=== PATIENT | male | born 1950 | race Caucasian/White ===

== ENCOUNTER 2021-04-05 13:08 | Inpatient (IN) | payer MEDICARE, BC ==
[~2021-04-05] VITALS: Ht 175.3 cm; Wt 84.8 kg
[2021-04-05] MEDS ORDERED: OLANZAPINE 10 MG VIAL IM ONE ×2 (13:45→13:52)
[2021-04-05] MEDS ORDERED: LORAZEPAM 0.5 MG TABLET PO ONE (13:45)
[2021-04-05] MEDS ORDERED: LORAZEPAM 1 MG TABLET ONE (13:47)
--- NOTE | 2021-04-05 13:50 | NUR ---
pt agitated and non-compliant at this time. pt medicated, will wait to see the results, pt on monitor.
[2021-04-05] MEDS ORDERED: QUET25TA PO ×2 (13:54)
[2021-04-05] MEDS ORDERED: QUET100T PO (13:54)
[2021-04-05] MEDS ORDERED: MIRT-93 PO (13:54)
[2021-04-05] MEDS ORDERED: LORA-258 PO (13:54)
[2021-04-05] MEDS ORDERED: APIX5TAB PO (14:13)
[2021-04-05] MEDS ORDERED: CARV3.122 PO (14:13)
[2021-04-05 14:46] LABS: HEMATOCRIT 41.1 % (36.7-47.1); MEAN CORPUSCULAR HEMOGLOBIN 30.9 uug (23.8-33.4); MEAN CORPUSCULAR VOLUME 92.1 fL (73.0-96.2); PLATELET COUNT (AUTO) 246 K/uL (152-348)
[2021-04-05 14:48] LABS: CARBON DIOXIDE 26 mmol/L (21-32); CHLORIDE 105 mmol/L (98-107); CREATININE 0.9 mg/dL (0.6-1.3); GLUCOSE 111 mg/dL (74-106); POTASSIUM 3.7 mmol/L (3.5-5.1); UREA NITROGEN, BLOOD 15 mg/dL (7-18)
[2021-04-05 14:55] LABS: ETHANOL < 3 MG/DL (0-0)
[2021-04-05 14:57] LABS: ALANINE AMINOTRANSFERASE 23 U/L (16-63); ALKALINE PHOSPHATASE 97 U/L (50-136); ASPARTATE AMINOTRANSFERASE 27 U/L (15-37); BILIRUBIN,DIRECT 0.2 mg/dL (0.0-0.2); BILIRUBIN,TOTAL 0.8 mg/dL (0.2-1.0); TOTAL PROTEIN, SERUM 7.3 g/dL (6.4-8.2)
[2021-04-05 15:01] LABS: THYROID STIMULATING HORMONE 0.871 mIU/mL (0.358-3.740)
[2021-04-05 15:13] LABS: ACETAMINOPHEN < 2.0 ug/mL (10-30)
[2021-04-05] MEDS ORDERED: diphenhydrAMINE 50 MG/1 ML VIAL ONE (15:13)
[2021-04-05] MEDS ORDERED: diphenhydrAMINE 50 MG/1 ML VIAL IM ONE (15:15)
--- NOTE | 2021-04-05 17:00 | NUR ---
pt calm, resting, at bedside.
--- NOTE | 2021-04-05 17:16 | NUR ---
parag gonzalez at bedside. pt's at bedside.
[2021-04-05] MEDS ORDERED: MAGNESIUM HYDROXIDE 30 ML LIQUID UDC PO PRN (18:15)
[2021-04-05] MEDS ORDERED: TEMAZEPAM 7.5 MG CAPSULE PO PRN (18:15)
[2021-04-05] MEDS ORDERED: MAG HYDROX/AL HYDROX/SIMETH 30 ML LIQUID UDC PO PRN (18:15)
[2021-04-05 19:59] VITALS: BP 154/78
[2021-04-05] MEDS ORDERED: hydrALAZINE HCL 25 MG TABLET PO PRN (20:45)
[2021-04-05] MEDS: DOCUSATE SODIUM 100 MG CAPSULE PO SCH ×2 (21:59→23:07)
[2021-04-05] MEDS: CARVEDILOL 3.125 MG TABLET PO SCH ×2 (21:59→23:07)
--- NOTE | 2021-04-05 22:00 | NUR ---
received to care, lying in bed, restless, resistive with care, combative, at times. apple sauce, and fluids given, with some resistance. 3 staff required to reder care, due to aggressiveness. as of now, he remains restless, talking to self. monitored closely for safety. will continue to monitor closely.
[2021-04-05] MEDS: LORAZEPAM 1 MG TABLET PO PRN (23:32)
--- NOTE | 2021-04-05 23:32 | NUR ---
PRN ativan given for restlessness.
--- NOTE | 2021-04-06 00:30 | NUR ---
appears to be asleep. no distress noted.
[2021-04-06 07:07] LABS: BILIRUBIN,TOTAL 1.1 mg/dL (0.2-1.0); CREATININE 0.7 mg/dL (0.6-1.3); POTASSIUM 3.6 mmol/L (3.5-5.1); TOTAL PROTEIN, SERUM 7.2 g/dL (6.4-8.2)
[2021-04-06 07:30] VITALS: BP 133/76
[2021-04-06] MEDS: LORAZEPAM 1 MG TABLET PO PRN (08:43)
[2021-04-06] MEDS: APIXABAN 5 MG TABLET PO SCH ×3 (08:44→23:55)
[2021-04-06] MEDS: CARVEDILOL 3.125 MG TABLET PO SCH ×2 (08:44→17:07)
[2021-04-06 15:06] VITALS: BP 130/71
[2021-04-06 21:25] VITALS: BP 114/87
[2021-04-06] MEDS: RIVASTIGMINE TARTRATE 1.5 MG CAPSULE PO SCH ×2 (21:58→23:52)
[2021-04-06] MEDS: risperiDONE 0.5 MG TABLET PO SCH ×2 (21:58→23:53)
[2021-04-06] MEDS: DOCUSATE SODIUM 100 MG CAPSULE PO SCH ×2 (21:58→23:54)
[2021-04-06] MEDS: DIVALPROEX 250 MG TABLET.DR PO SCH ×2 (21:58→23:53)
[2021-04-06] MEDS: MIRTAZAPINE 15 MG TABLET PO SCH ×2 (21:58→23:52)
--- NOTE | 2021-04-07 03:19 | NUR ---
received to care, asleep, in bed, no distress noted. maximum precautions observed for safety. 2100 medications were held. he was awoken at around 2355, and medications were given, with difficulty and much encouragement,along with a container of applesauce, and around 100 ml of water. he then became restless, and tried to climb out of bed. he was assisted up in the padmini chair, placed at nurses station for safety, and fell asleep again, around 0100. as of now, he remains asleep. no distress noted. will continue to monitor closely.
--- NOTE | 2021-04-07 06:00 | NUR ---
slept 6 hours. remains up in padmini chair at nurses station, for safety.
[2021-04-07 07:46] VITALS: BP 129/75
--- NOTE | 2021-04-07 08:17 | NUR ---
SW Family Contact SW talked to son, Harman Albert to discuss treatment and discharge plan. Son refused to speak with SW and was upset, refuse to provide information, and hung the phone up.
[2021-04-07] MEDS: RIVASTIGMINE TARTRATE 1.5 MG CAPSULE PO SCH ×2 (09:28→23:10)
[2021-04-07] MEDS: CARVEDILOL 3.125 MG TABLET PO SCH ×2 (09:28→17:29)
[2021-04-07] MEDS: APIXABAN 5 MG TABLET PO SCH ×2 (09:29→23:15)
[2021-04-07] MEDS: risperiDONE 0.5 MG TABLET PO SCH ×2 (09:30→23:11)
[2021-04-07] MEDS: DIVALPROEX 250 MG TABLET.DR PO SCH ×2 (09:30→23:11)
--- NOTE | 2021-04-07 15:48 | NUR ---
SW Family Contact SW left a voicemail for patient's Brian ([phone]) to discuss treatment and discharge plan. Waiting for a call back.
[2021-04-07 16:09] VITALS: BP 132/69
--- NOTE | 2021-04-07 17:45 | NUR ---
GPS: PT SITTING ON THE GERICHAIR, CONFUSED, TALKS TO SELF IN ENGLISH LANGUAGE. CHALLENGING TO GIVE MEDICATION. PT REFUSED EATING LUNCH AND DINNER. NOT OPENING MOUTH EVEN EXPLAINING IN HIS [place] AND [place] TONGUE TO EAT. PT WAS ABLE TO CONSUME A SUPPLEMENT DRINK TODAY.
[2021-04-07 20:04] VITALS: BP 123/83
[2021-04-07] MEDS: MIRTAZAPINE 15 MG TABLET PO SCH (23:10)
[2021-04-07] MEDS: DOCUSATE SODIUM 100 MG CAPSULE PO SCH (23:10)
--- NOTE | 2021-04-08 00:30 | NUR ---
received to care, ip in padmini chair at nurses station for safety.
--- NOTE | 2021-04-08 00:30 | NUR ---
received to care, up in padmini chair at nurses station for safety. medications were initially held, due to being asleep. they were given around 2300, along with a snack and fluids, all of which were given with some resistance, and lots of encouragement, a she was agitated, and slightly combative. he then fell back to sleep, after being medicated. as of now, he remains asleep. no distress noted. will continue to monitor closely.
--- NOTE | 2021-04-08 06:00 | NUR ---
slept 4.5 hours. was assisted back to bed this morning, but immediately tried to climb out. assisted back to padmini chair, for safety/monitoring, and wrent back to sleep. no distress noted.
--- NOTE | 2021-04-08 07:24 | NUR ---
NOTE TO TRAUMA THERAPIST; patients daughter, William, called, and stated that the best number, to reach her mother, is at [phone].
--- NOTE | 2021-04-08 07:32 | NUR ---
last night, patients daughter, William, called, and wanter to talk to Dr Torres, at [phone]. this was endorsed to oncoming shift.
[2021-04-08 07:59] VITALS: BP 109/89
[2021-04-08] MEDS: risperiDONE 0.5 MG TABLET PO SCH ×2 (08:14→20:55)
[2021-04-08] MEDS: DIVALPROEX 250 MG TABLET.DR PO SCH (08:14)
[2021-04-08] MEDS: CARVEDILOL 3.125 MG TABLET PO SCH ×2 (08:14→17:54)
[2021-04-08] MEDS: RIVASTIGMINE TARTRATE 1.5 MG CAPSULE PO SCH ×2 (08:14→20:55)
[2021-04-08] MEDS: APIXABAN 5 MG TABLET PO SCH ×2 (08:17→20:57)
--- NOTE | 2021-04-08 08:42 | NUR ---
SW Family Contact SW left a voicemail for patient's Brian ([phone]) to discuss treatment and discharge plan. Waiting for a call back.
--- NOTE | 2021-04-08 11:39 | NUR ---
GPS: TALKED TO DAUGHTER. REQUESTING FOR DR ALMANZA TO CALL BACK.
--- NOTE | 2021-04-08 13:10 | NUR ---
SW Family Contact SW called and spoke with patient's Butch Albert ([phone]) and discussed treatment and discharge plan. Butch provided collateral information (see sw assessment). Butch reports patient will be returning to her care to their home upon discharge. SW will coordinate appropriate resources for patient and family.
--- NOTE | 2021-04-08 15:44 | NUR ---
SW Family Contact SW called and spoke with patient's Butch Albert ([phone]) and confirmed that she is the DPOA and this SW requested copies. Butch stated she would be faxing copies tomorrow morning.
[2021-04-08 16:19] VITALS: BP 125/75
--- NOTE | 2021-04-08 18:22 | NUR ---
GPS: PT STAYS ON GERICHAIR AND AWAKE THE WHOLE DAY. 30% FOOD CONSUMED AT DINNER, 50% AT BREAKFAST AND 25% AT LUNCH TIME. CHALLENGING WITH GIVING THE MEDICATION PT HARDLY OPENS THE MOUTH. GETS AGITATED WHEN TRYING TO MAKE HIM STAND WHEN GIVING PERICARE AND CHANGING CLOTHES. DAUGHTER CAME FOR A VISIT AT 1810.
--- NOTE | 2021-04-08 19:07 | NUR ---
GPS: INFORMED DR ALMANZA FOR 72 HR HOLD FOR PT EXPIRING TODAY. PER MD, HE'S ON HIS WAY.
[2021-04-08 20:03] VITALS: BP 126/78
[2021-04-08] MEDS: DOCUSATE SODIUM 100 MG CAPSULE PO SCH (20:55)
[2021-04-08] MEDS: MIRTAZAPINE 15 MG TABLET PO SCH (20:55)
[2021-04-08] MEDS: DIVALPROEX SPRINKLE 125 MG CAP.SPRINK PO SCH (20:55)
--- NOTE | 2021-04-09 06:40 | NUR ---
GPS: Pt.slept for 8 hrs.last night. Remains confused,disoriented and resistant to nursing care. Fall precautions observed. Will continue to monitor.
[2021-04-09 07:30] VITALS: BP 157/79
[2021-04-09] MEDS: ENSURE ENLIVE (VAN) 240 ML LIQUID PO SCH ×3 (08:00→16:58)
[2021-04-09] MEDS: risperiDONE 1 MG/ML UDC PO SCH ×2 (08:41→20:17)
[2021-04-09] MEDS: RIVASTIGMINE TARTRATE 1.5 MG CAPSULE PO SCH ×2 (08:42→20:17)
[2021-04-09] MEDS: DIVALPROEX SPRINKLE 125 MG CAP.SPRINK PO SCH ×2 (08:42→20:17)
[2021-04-09] MEDS: CARVEDILOL 3.125 MG TABLET PO SCH ×2 (08:43→16:58)
[2021-04-09] MEDS: APIXABAN 5 MG TABLET PO SCH ×2 (08:44→20:28)
--- NOTE | 2021-04-09 15:44 | NUR ---
SW Initial Discharge Note Patient will be discharged to home at [address], [place] [address] to 's care ([phone]). Transportation is not needed. [employer] spoke with , Butch who stated they are going to be having patient back home and rearranging home for patient's care. Patient is non verbal and can not communicate. Patient will continue to follow-up with (psychiatrist) Dr. Torres and (dinkey dispatcher) Dr. Anderson.
[2021-04-09 16:00] VITALS: BP 120/79
--- NOTE | 2021-04-09 16:09 | NUR ---
Treatment Plan Patient unable to sign treatment plan due to disorganized thought process and Alzheimer's Disease.
[2021-04-09 20:14] VITALS: BP 107/79
[2021-04-09] MEDS: DOCUSATE SODIUM 100 MG CAPSULE PO SCH (20:16)
[2021-04-09] MEDS: MIRTAZAPINE 15 MG TABLET PO SCH (20:17)
--- NOTE | 2021-04-10 05:51 | NUR ---
GPS: Pt.slept 6.30 last night. Confused,disoriented and remains resistant to nursing care. No facial grimacing of pain observed. Repositioned for comfort. Fall precautions observed. Will continue to re-direct prn.
[2021-04-10 08:06] VITALS: BP 128/74
[2021-04-10] MEDS: ENSURE ENLIVE (VAN) 240 ML LIQUID PO SCH ×3 (08:07→16:53)
[2021-04-10] MEDS: RIVASTIGMINE TARTRATE 1.5 MG CAPSULE PO SCH ×2 (08:07→20:52)
[2021-04-10] MEDS: DIVALPROEX SPRINKLE 125 MG CAP.SPRINK PO SCH ×2 (08:07→20:53)
[2021-04-10] MEDS: APIXABAN 5 MG TABLET PO SCH ×2 (08:08→21:00)
[2021-04-10] MEDS: risperiDONE 1 MG/ML UDC PO SCH ×3 (08:08→20:57)
[2021-04-10] MEDS: CARVEDILOL 3.125 MG TABLET PO SCH ×2 (08:09→17:43)
--- NOTE | 2021-04-10 08:45 | NUR ---
held Risperdal am po dose due to patient was very sleepy.
--- NOTE | 2021-04-10 17:00 | NUR ---
patient is constipated. mom 30 ml po given.
[2021-04-10] MEDS: ACETAMINOPHEN 325 MG TABLET PO PRN (17:13)
--- NOTE | 2021-04-10 17:13 | NUR ---
patient temp 99.9. tylenol 650 mg po given. extra po fluid given.
[2021-04-10 17:20] VITALS: BP 92/64
--- NOTE | 2021-04-10 18:10 | NUR ---
GPS: Remain uncooperative with meds and care. encouraged to drink po fluid. patient has poor appetite. family made aware. assisted with adl's. continue plan of care.
--- NOTE | 2021-04-10 18:14 | NUR ---
temp 99.8 now. charge nurse made aware.
[2021-04-10 19:39] LABS: HEMATOCRIT 42.6 % (36.7-47.1); MEAN CORPUSCULAR HEMOGLOBIN 30.5 uug (23.8-33.4); MEAN CORPUSCULAR VOLUME 90.6 fL (73.0-96.2); PLATELET COUNT (AUTO) 293 K/uL (152-348)
[2021-04-10 19:41] LABS: CARBON DIOXIDE 30 mmol/L (21-32); CHLORIDE 103 mmol/L (98-107); CREATININE 0.8 mg/dL (0.6-1.3); GLUCOSE 129 mg/dL (74-106); POTASSIUM 3.7 mmol/L (3.5-5.1); UREA NITROGEN, BLOOD 26 mg/dL (7-18)
[2021-04-10 19:54] LABS: ALANINE AMINOTRANSFERASE 82 U/L (16-63); ALKALINE PHOSPHATASE 144 U/L (50-136); ASPARTATE AMINOTRANSFERASE 65 U/L (15-37); BILIRUBIN,TOTAL 1.3 mg/dL (0.2-1.0); TOTAL PROTEIN, SERUM 7.8 g/dL (6.4-8.2)
[2021-04-10 20:01] VITALS: BP 136/82
--- NOTE | 2021-04-10 20:50 | NUR ---
WAS NOTIFIED REGARDING PT'S CONDITION.PT IS MORE AROUSABLE,ABLE TO DRINK MORE FLUID WHEN FED HIM WITH SPOON,HAD NO RECORD FOR BM SINCE HE WAS ADMITTED,V/S 136/82 99.3,99 ,19 AND 96% O2 SAT ON RA.BLOOD TEST RESULT AND CXR DONE WITH PENDING RESULT. ORDERED MEDS & IV TO BE GIVEN,OK TO NOVEMBER STRAIGHT CATH TO OBTAIN THE URINE SPECIMEN , AM LABS AND TO CANCEL THE TRANSFER THEN TO CONTINUE TO MONITOR FOR ANY CHANGES. Addendum: 04/11/21 at 0234 by ROMINA GUILLEN RN CORRECTION: TIME TO NOTIFY WAS 0 PM NOT
[2021-04-10] MEDS: MIRTAZAPINE 15 MG TABLET PO SCH (20:54)
[2021-04-10] MEDS: DOCUSATE SODIUM 100 MG CAPSULE PO SCH (20:54)
[2021-04-10] MEDS ORDERED: BISACODYL 10 MG SUPP.RECT RC ONE (21:30)
--- NOTE | 2021-04-10 21:30 | NUR ---
NOTIFIED REGARDING POSSIBLE TRANSFER THE PT TO MEDICAL FLOOR FOR R/O PNEUMONIA.SHE AGREED TO TRANSFER AND ORDERED TO CONTINUE THE 14 DAY HOLD.
[2021-04-10] MEDS ORDERED: MIRALAX 17 GM POWD.PACK PO ONE (21:45)
[2021-04-10] MEDS ORDERED: IV 1/2NS 1000 ML 1,000 ML IV SCH (21:45)
--- NOTE | 2021-04-10 22:00 | NUR ---
CORRECTION:TIME TO NOTIFY WAS 0 PM NOT 2049 PM.
[2021-04-11 00:17] LABS: *BILIRUBIN,URIN 2+ (NEGATIVE); *BLOOD, URINE 1+ (NEGATIVE); *CLARITY,URINE CLEAR (CLEAR); *COLOR,URINE YELLOW (YELLOW); *KETONES,URINE 3+ (NEGATIVE); *UROBILINOGEN,URINE >=8.0 E.U./dl (NORMAL); LEUKOCYTE ESTERASE ,URINE NEGATIVE (NEGATIVE); NITRITE, URINE NEGATIVE (NEGATIVE); PH,URINE 6.5 (5.0-8.0); UGLUCOSE NEGATIVE (NEGATIVE)
[2021-04-11] MEDS: ACETAMINOPHEN 325 MG TABLET PO PRN (00:30)
--- NOTE | 2021-04-11 02:30 | NUR ---
At start of the shift, this casualty underwriter spent time with patient encouraging oral fluids, monitoring and assessing his status. Per order , the patient had labs drawn and a chest x-ray. A rectal suppository was administered and the patient was catheterized for a urine . A specimen was sent to the lab. This casualty underwriter started and IV in the left forearm and IV fluids are infusing per order. The patient is tolerating it well. The result of the suppository was 4-5 large clumps of formed stool. Patient was combative and striking out at the staff providing care. The patients current temperature is 98.8. Patient is resting close to this casualty underwriter and being monitored for safety and any change in status. No acute distress noted at this time.
--- NOTE | 2021-04-11 06:48 | NUR ---
The patient tolerated the liter of IV fluids. Increase in urine output noted. Patient is resting in bed at this time and refused to have labs drawn. Much more alert this am. VS are stable and no distress of any kind noted. Will endorse this patient to the oncoming shift to monitor patient closely.
[2021-04-11 07:47] VITALS: BP 114/46
[2021-04-11] MEDS: RIVASTIGMINE TARTRATE 1.5 MG CAPSULE PO SCH ×2 (08:37→21:22)
[2021-04-11] MEDS: ENSURE ENLIVE (VAN) 240 ML LIQUID PO SCH ×3 (08:38→16:47)
[2021-04-11] MEDS: DIVALPROEX SPRINKLE 125 MG CAP.SPRINK PO SCH ×2 (08:38→21:22)
[2021-04-11] MEDS: APIXABAN 5 MG TABLET PO SCH ×2 (08:39→21:33)
[2021-04-11] MEDS: risperiDONE 1 MG/ML UDC PO SCH ×2 (08:40→21:23)
[2021-04-11] MEDS: CARVEDILOL 3.125 MG TABLET PO SCH ×2 (08:40→17:22)
--- NOTE | 2021-04-11 09:00 | NUR ---
patient is sitting in bed, upright position did not eat much breakfast, drank 50% ensure, meds administered, however sophiatent spitted out some of medications, unable to identify which medication was spitted out. noted with some gurgling, ST anatolyal ordered. saturating at 96% at room air, no sob, resp even nonlabored, patient is calm and comfortable, continue to monitor
[2021-04-11 11:37] VITALS: BP 116/60
[2021-04-11 11:51] LABS: HEMATOCRIT 43.6 % (36.7-47.1); MEAN CORPUSCULAR HEMOGLOBIN 30.8 uug (23.8-33.4); MEAN CORPUSCULAR VOLUME 91.7 fL (73.0-96.2); PLATELET COUNT (AUTO) 271 K/uL (152-348)
[2021-04-11 11:59] LABS: BILIRUBIN,TOTAL 0.9 mg/dL (0.2-1.0); CREATININE 0.7 mg/dL (0.6-1.3); POTASSIUM 4.2 mmol/L (3.5-5.1); TOTAL PROTEIN, SERUM 7.5 g/dL (6.4-8.2)
--- NOTE | 2021-04-11 12:00 | NUR ---
patient noted with lethargy,vital are WNL, saturating at 97% at room air, no sob, resp even nonlabored, skin warm and dry to touch, continue to monitor
--- NOTE | 2021-04-11 12:23 | NUR ---
patient is sitting up in bed, noted with gurgling upon giving ensure, ST eval ordered, patient is more awake now, opens his eyes on verbal stimuli, vitals are WNL, saturating at 97% at room air, no sob, resp even nonlabored, skin warm and dry to touch, continue to monitor closely
--- NOTE | 2021-04-11 13:09 | NUR ---
paged dr jones to notify patient current condition being lethargic, waiting for call back
[2021-04-11] MEDS ORDERED: IV D5/ 0.9% NACL 1,000 ML IV ONE (15:00)
--- NOTE | 2021-04-11 15:06 | NUR ---
patient is examined by Jermaine Padilla GLOVE CLEANER, patient still noted with extensive lethargy, not able to eat or drink today, gurgled on liquids, administering IV fluids as ordered, as tolerated, vitals are WNL, no sob, resp even nonlabored, skin warm and dry to touch, no fever, lungs clear upon auscultation, continue to monitor for effectiveness of hydration therapy.
--- NOTE | 2021-04-11 16:10 | NUR ---
IV fluids administered. patient family is bedside, and daughter, patient is more alert to self and to his family, sitting upright in bed, communicating with his family.
[2021-04-11 16:18] VITALS: BP 121/55
--- NOTE | 2021-04-11 18:03 | NUR ---
patient was up in padmini chair for dinner, only ate 15%, tried to collect another urine sample with straight cath, unable to collect.
--- NOTE | 2021-04-11 18:06 | NUR ---
no acute distress noted, no sob, resp even nonlabored, skin warm and dry to touch, lung sounds clear upon auscultation, continue to monitor
[2021-04-11 20:04] VITALS: BP 118/52
[2021-04-11] MEDS: DOCUSATE SODIUM 100 MG CAPSULE PO SCH (21:22)
[2021-04-11] MEDS: MIRTAZAPINE 15 MG TABLET PO SCH (21:23)
[2021-04-11] MEDS: MEGESTROL ACETATE 400 MG/10 ML LIQUID UDC PO SCH (21:23)
--- NOTE | 2021-04-12 06:00 | NUR ---
Slept 6 hours total. assisted up in padmini chair. IV heplock was flushed, and remains intact. 80 ml of PO fluids were given, with no resistance. Last night he was resistive, and only 50 ml was given. All fluids given were thickened, to nectar consistency.
[2021-04-12] MEDS ORDERED: Z GUARD REMEDY PASTE 57 GM TUBE TOP PRN (06:15)
[2021-04-12 07:49] VITALS: BP 109/75
[2021-04-12 07:53] LABS: MEAN CORPUSCULAR HEMOGLOBIN 30.3 uug (23.8-33.4); MEAN CORPUSCULAR VOLUME 90.1 fL (73.0-96.2); PLATELET COUNT (AUTO) 289 K/uL (152-348)
[2021-04-12] MEDS: CARVEDILOL 3.125 MG TABLET PO SCH ×3 (08:00→10:08)
[2021-04-12] MEDS: ENSURE ENLIVE (VAN) 240 ML LIQUID PO SCH ×3 (08:00→17:47)
[2021-04-12 08:02] LABS: CREATININE 0.7 mg/dL (0.6-1.3); MAGNESIUM 2.3 mg/dL (1.8-2.4); PHOSPHOROUS 2.8 mg/dL (2.5-4.9); POTASSIUM 3.7 mmol/L (3.5-5.1)
[2021-04-12] MEDS: RIVASTIGMINE TARTRATE 1.5 MG CAPSULE PO SCH ×3 (08:40→21:22)
[2021-04-12] MEDS: DIVALPROEX SPRINKLE 125 MG CAP.SPRINK PO SCH ×3 (08:41→21:23)
[2021-04-12] MEDS: APIXABAN 5 MG TABLET PO SCH ×3 (08:42→21:24)
[2021-04-12] MEDS: Z GUARD REMEDY PASTE 57 GM TUBE TOP SCH ×2 (08:43→22:20)
[2021-04-12] MEDS: risperiDONE 1 MG/ML UDC PO SCH ×4 (08:43→21:21)
[2021-04-12] MEDS: MEGESTROL ACETATE 400 MG/10 ML LIQUID UDC PO SCH ×4 (08:43→21:20)
--- NOTE | 2021-04-12 08:53 | NUR ---
Late Entry Social work Discharge Plan Spoke with , Butch Albert at [phone] who states that she wants patient to return home to her once his is stable
--- NOTE | 2021-04-12 10:13 | NUR ---
GPS: RECEIVED PT ASLEEP ON THE CHAIR. PT HAD 6 HRS OF SLEEP LAST NIGHT. PT MEDICATION ON HOLD DUE TO SLEEPINESS. VS BP 109/75 HR 94. WILL MONITOR PT
--- NOTE | 2021-04-12 11:41 | NUR ---
Patient's probable cause hearing for the 5250 hold was upheld for grave disability.
--- NOTE | 2021-04-12 14:26 | NUR ---
SW Family Contact ROSHAN was informed pt other SW pt's inquiring about purchase of Stacey chair. ROSHAN called and left voicemail for pt's Butch ([phone]) informing that Stacey chairs can be purchased at medical supply stores.
[2021-04-12] MEDS: ACETAMINOPHEN 325 MG TABLET PO PRN (15:41)
--- NOTE | 2021-04-12 15:49 | NUR ---
GPS: PT WITH LOW GRADE FEVER 99.5F RECTALLY. PT GIVEN TYLENOL 325MG 2 TABLETS. PT TOLERATED THE MEDICATION. WILL MONITOR PT.
[2021-04-12 16:27] VITALS: BP 119/69
--- NOTE | 2021-04-12 17:00 | NUR ---
GPS: PT ASSESSMENT TO TEMPERATURE DONE. T 99F. ENCOURAGED PT TO INCREASE FLUID INTAKE. GIVEN FLUIDS AND TOLERATED WELL. PT TRANSFERRED TO BED. DAUGHTER AND CAME TODAY FOR A VISIT.
[2021-04-12 20:05] VITALS: BP 114/70
[2021-04-12] MEDS: DOCUSATE SODIUM 100 MG CAPSULE PO SCH (21:22)
[2021-04-12] MEDS: MIRTAZAPINE 15 MG TABLET PO SCH (21:24)
--- NOTE | 2021-04-12 22:00 | NUR ---
received to care, lying in bed, asleep, but arousable. vital signs, including temperature, are normal. compliant with medications, and PO fluids of nectar thick consistency, and were tolerated well. repositioned and kept clean and dry. no combative, aggressive behaviors, or distress noted.
--- NOTE | 2021-04-13 06:29 | NUR ---
slept 7 hours, toal. continues to sleep. no distress, noted.
[2021-04-13 07:30] VITALS: BP 121/72
[2021-04-13] MEDS: ENSURE ENLIVE (VAN) 240 ML LIQUID PO SCH ×2 (08:35→12:36)
[2021-04-13] MEDS: RIVASTIGMINE TARTRATE 1.5 MG CAPSULE PO SCH ×2 (08:35→20:29)
[2021-04-13] MEDS: DIVALPROEX SPRINKLE 125 MG CAP.SPRINK PO SCH ×2 (08:35→20:27)
[2021-04-13] MEDS: MEGESTROL ACETATE 400 MG/10 ML LIQUID UDC PO SCH ×2 (08:36→20:26)
[2021-04-13] MEDS: Z GUARD REMEDY PASTE 57 GM TUBE TOP SCH ×2 (08:37→20:27)
[2021-04-13] MEDS: APIXABAN 5 MG TABLET PO SCH ×2 (08:38→20:30)
--- NOTE | 2021-04-13 14:35 | NUR ---
Patient is lethargic. unable to follow simple commands. Able to take meds with Ensure. High risk for aspiration. needs max assist. Turned and reposition for perfusion. All needs attended. Frequent checks done. Safety precaution maintained. Will endorsed for continuity of care.
[2021-04-13 15:04] VITALS: BP 143/64
[2021-04-13] MEDS: ENSURE WITH FIBER 237 ML LIQUID (CHOCOLATE) PO SCH ×2 (17:44→20:26)
[2021-04-13] MEDS: CARVEDILOL 3.125 MG TABLET PO SCH (17:45)
--- NOTE | 2021-04-13 19:00 | NUR ---
Patient is in his bed, able to take his meds with ensure, aspiration precaution maintained. Kept on high fowlers position. He is confused, unable to make needs known. Mumbles and fully awake. Will continue to monitor.
[2021-04-13 19:55] VITALS: BP 148/76
[2021-04-13] MEDS: MIRTAZAPINE 15 MG TABLET PO SCH (20:26)
[2021-04-13] MEDS: risperiDONE 1 MG/ML UDC PO SCH (20:27)
[2021-04-13] MEDS: DOCUSATE SODIUM 100 MG CAPSULE PO SCH (20:27)
--- NOTE | 2021-04-14 06:33 | NUR ---
Patient slept 7.5 hrs during the shift. No distress identified. No agitation noted. Kept head of the bed elevated, turned and repositioned. Provided quiet time. Frequent checks and safety precautions maintained. Will endorsed to the next shift for continuity of care.
[2021-04-14 07:45] VITALS: BP 116/69
[2021-04-14] MEDS: DIVALPROEX SPRINKLE 125 MG CAP.SPRINK PO SCH ×2 (08:24→20:40)
[2021-04-14] MEDS: CARVEDILOL 3.125 MG TABLET PO SCH ×2 (08:24→17:13)
[2021-04-14] MEDS: MEGESTROL ACETATE 400 MG/10 ML LIQUID UDC PO SCH ×2 (08:25→20:41)
[2021-04-14] MEDS: risperiDONE 1 MG/ML UDC PO SCH ×3 (08:25→20:42)
[2021-04-14] MEDS: APIXABAN 5 MG TABLET PO SCH ×2 (08:25→20:41)
[2021-04-14] MEDS: Z GUARD REMEDY PASTE 57 GM TUBE TOP SCH ×2 (08:26→20:42)
[2021-04-14] MEDS: RIVASTIGMINE TARTRATE 1.5 MG CAPSULE PO SCH ×2 (08:49→20:41)
[2021-04-14] MEDS: ENSURE WITH FIBER 237 ML LIQUID (CHOCOLATE) PO SCH ×4 (08:50→20:41)
[2021-04-14 17:08] VITALS: BP_SYST 112; BP_SYST 148; BP_DIAS 69; BP_DIAS 79
--- NOTE | 2021-04-14 17:48 | NUR ---
Remain calm and cooperative with meds and care. assisted with adl's. continue plan of care.
[2021-04-14] MEDS: DOCUSATE SODIUM 100 MG CAPSULE PO SCH (20:40)
[2021-04-14] MEDS: MIRTAZAPINE 15 MG TABLET PO SCH (20:42)
[2021-04-14 21:05] VITALS: BP 109/64
--- NOTE | 2021-04-15 06:28 | NUR ---
Pt slept throughout the shift, no s/s of distress. No complaints/signs of pain. No change in LOC. Refused HS meds despite encouragement; offered 2x. Dr. Torres informed during his visit last night. Kept clean, dry and comfortable. Skin care and incontinent care done. Noted some resistance during nursing care. Safety precautions in place. Will endorse accordingly.
[2021-04-15 06:51] LABS: BILIRUBIN,TOTAL 1.9 mg/dL (0.2-1.0); CREATININE 0.8 mg/dL (0.6-1.3); POTASSIUM 3.8 mmol/L (3.5-5.1); TOTAL PROTEIN, SERUM 7.6 g/dL (6.4-8.2)
[2021-04-15 07:52] VITALS: BP 111/86
[2021-04-15] MEDS: risperiDONE 1 MG/ML UDC PO SCH (08:23)
[2021-04-15] MEDS: RIVASTIGMINE TARTRATE 1.5 MG CAPSULE PO SCH (08:23)
[2021-04-15] MEDS: CARVEDILOL 3.125 MG TABLET PO SCH (08:23)
[2021-04-15] MEDS: DIVALPROEX SPRINKLE 125 MG CAP.SPRINK PO SCH (08:23)
[2021-04-15] MEDS: MEGESTROL ACETATE 400 MG/10 ML LIQUID UDC PO SCH (08:23)
[2021-04-15] MEDS: APIXABAN 5 MG TABLET PO SCH (08:24)
[2021-04-15] MEDS: Z GUARD REMEDY PASTE 57 GM TUBE TOP SCH (08:24)
[2021-04-15] MEDS: ENSURE WITH FIBER 237 ML LIQUID (CHOCOLATE) PO SCH ×2 (08:55→12:50)
--- NOTE | 2021-04-15 09:17 | NUR ---
Clinical Stone Setter Apprentice Note SW Family Contact Spoke with , Butch Albert at [phone] Torres stating discharge for tomorrow and coordinating discharge with . stated that she was informed patient would be at [facility] for two weeks and she could not have him in the home yet as Dr. Torres recommended to have patient placed in a short term facility to help regain mobility. SW will follow up with Dr. Torres.
--- NOTE | 2021-04-15 10:38 | NUR ---
Clinical Veneer Jointer Returner Note SW SNF Referral SW Contacted [facility] ([address], [place] [address] ), [facility] ([address], [place] [address] ) and [facility] [address] [place] [address] ) to discuss short term placement for patient upon discharge. Per Dr. Torres and patient 's request, they would like patient in a short term facility before he returns home in order to gain more mobility. ROSHAN faxed over pt's clinicals for referral such as H and P, progress notes, and medication list.
--- NOTE | 2021-04-15 11:48 | NUR ---
SW SNF Referral SW Contact Iris at [facility] [place] [address] [place] [address] ([phone] & [phone]) ROSHAN faxed over pt's clinicals for referral such as H and P, progress notes, and medication list.
--- NOTE | 2021-04-15 13:15 | NUR ---
GPS: PT [place] BE DISCHARGE OF 14 DAY HOLD 5250 [place] [facility] [place] TO MED SUR[facility] RM 309, PER ELVIS JOHNSON NP APPROVAL..
--- NOTE | 2021-04-15 14:21 | NUR ---
Clinical Social Work Note Patient was deemed to be at baseline and ready for discharge by Dr Torres. However, patient failed swallow evaluation and is an aspiration risk. Adelaida ISBELL will be transferring patient upstairs as a medical patient. Dr Torres will follow patient upstairs. Patient was accepted at [facility] if and when he is medically stable. , Butch, is caring and involved and is DP ( [phone]). wanted placement in [place] but there were no accepting facilities there. [facility]psy, case management was notified.
[2021-04-15 16:00] VITALS: BP 104/71
--- NOTE | 2021-04-15 16:00 | NUR ---
GPS: PATIENT DISCHARGED TO 3RD FLOOR VIA [facility] STAFF IN HERB CHAIR. V/S WNL. SKIN INTACT. BELONGING GIVEN. PATIENT IS NOT IN ACUTE DISTRESS. TOTAL CARE,FEEDER. FAMILY MADE AWARE.REPORT GIVEN TO ANJALI HERNANDEZ.
[2021-04-15] MEDS ORDERED: DIVA125C2 PO (19:24)
[2021-04-15] MEDS ORDERED: TEMA7.5C PO (19:24)
[2021-04-15] MEDS ORDERED: MIRT-94 PO (19:24)
[2021-04-15] MEDS ORDERED: MAG355OR18 PO (19:24)
[2021-04-15] MEDS ORDERED: ACET-2154 PO (19:24)
[2021-04-15] MEDS ORDERED: LORA-259 PO (19:24)
[2021-04-15] MEDS ORDERED: HYDR-894 PO (19:24)
[2021-04-15] MEDS ORDERED: MEGE400O5 PO (19:24)
[2021-04-15] MEDS ORDERED: RISP1TAB97 PO (19:24)
[2021-04-15] MEDS ORDERED: APIX5TAB4 PO (19:24)
[2021-04-15] MEDS ORDERED: MAGN400O6 PO (19:24)
[2021-04-15] MEDS ORDERED: RIVA1.5C13 PO (19:24)
[2021-04-15] MEDS ORDERED: CARV3.122 PO (19:24)
[2021-04-15] MEDS ORDERED: DOCU250C14 PO (19:24)
== END 2021-04-15 17:10 | disposition short-term general hospital (02) | DRG 885 ==
LOC: ER 13:08 → GPS 17:47
PROVIDERS: ADMIT Psychiatry & Neurology Psychiatry; ATTEND Internal Medicine
DX: F29 Unspecified psychosis not due to a substance or known physiological condition (principal); F02.81 Dementia in other diseases classified elsewhere, unspecified severity, with behavioral disturbance; Z20.822 Contact with and (suspected) exposure to COVID-19; G30.9 Alzheimer's disease, unspecified; E66.9 Obesity, unspecified; E86.0 Dehydration; F32.9 Major depressive disorder, single episode, unspecified; R73.9 Hyperglycemia, unspecified; I10 Essential (primary) hypertension; R62.7 Adult failure to thrive; Z68.27 Body mass index [BMI] 27.0-27.9, adult; F25.9 Schizoaffective disorder, unspecified
CPT/HCPCS: 36415; 70030-TC; 70450; 71045; 80164; 83735; 84100; 84443; 85025; 87086; 93005; 97161; A4663; G0480; J1200; J2358; J3490; J7042; J8999

== ENCOUNTER 2021-04-15 17:32 | Inpatient (IN) | payer MEDICARE, BC ==
[~2021-04-15] VITALS: Ht 175.3 cm; Wt 84.8 kg
[~2021-04-15 17:32] MED LIST: APIX5TAB PO; CARV3.122 PO
--- NOTE | 2021-04-15 17:50 | NUR ---
70 YEAR OLD MALE RECEIVED TO ROOM 301A FOR ASPIRATION .PT IS AXOX1 SITTER IS AT BED SIDE VS ARE STABLE MD NOTIFIED FOR ADMISSION ORDERS
[2021-04-15 18:07] VITALS: BP 101/66
--- NOTE | 2021-04-15 18:40 | NUR ---
pt went to or via bed for surgery in stable condition Addendum: 04/15/21 at 1852 by ADOLFO HARRELL LVN wrong pt charting
[2021-04-15] MEDS ORDERED: MEGE400O5 PO (19:24)
[2021-04-15] MEDS ORDERED: MAGN400O6 PO (19:24)
[2021-04-15] MEDS ORDERED: DOCU250C14 PO (19:24)
[2021-04-15] MEDS ORDERED: TEMA7.5C PO (19:24)
[2021-04-15] MEDS ORDERED: HYDR-894 PO (19:24)
[2021-04-15] MEDS ORDERED: MAG355OR18 PO (19:24)
[2021-04-15] MEDS ORDERED: MIRT-94 PO (19:24)
[2021-04-15] MEDS ORDERED: DIVA125C2 PO (19:24)
[2021-04-15] MEDS ORDERED: APIX5TAB4 PO (19:24)
[2021-04-15] MEDS ORDERED: RISP1TAB97 PO (19:24)
[2021-04-15] MEDS ORDERED: ACET-2154 PO (19:24)
[2021-04-15] MEDS ORDERED: CARV3.122 PO (19:24)
[2021-04-15] MEDS ORDERED: LORA-259 PO (19:24)
[2021-04-15] MEDS ORDERED: RIVA1.5C13 PO (19:24)
[2021-04-15] MEDS ORDERED: Z GUARD REMEDY PASTE 57 GM TUBE TOP PRN ×2 (19:30→23:30)
[2021-04-15 19:57] VITALS: BP 125/60
[2021-04-15] MEDS ORDERED: TEMAZEPAM 7.5 MG CAPSULE PO PRN (21:00)
[2021-04-15] MEDS ORDERED: IV D5 1/2 NS 1000 ML 1,000 ML IV PRN (23:30)
[2021-04-15] MEDS ORDERED: ZOLPIDEM 5 MG TABLET PO PRN (23:30)
[2021-04-15] MEDS ORDERED: MAG HYDROX/AL HYDROX/SIMETH 30 ML LIQUID UDC PO PRN (23:30)
[2021-04-15] MEDS ORDERED: MAGNESIUM HYDROXIDE 30 ML LIQUID UDC PO PRN ×2 (23:30)
[2021-04-15] MEDS ORDERED: hydrALAZINE HCL 25 MG TABLET PO PRN (23:30)
[2021-04-15] MEDS ORDERED: ACETAMINOPHEN 325 MG TABLET-SA PATIENTS-PAIN ONLY PO PRN (23:30)
[2021-04-15] MEDS ORDERED: LORAZEPAM 1 MG TABLET PO PRN (23:30)
[2021-04-15] MEDS ORDERED: ONDANSETRON 4 MG/2 ML VIAL IV PRN (23:30)
--- NOTE | 2021-04-16 01:59 | NUR ---
pt is sleeping in his bed call light with in reach iv fluids continue we will continue to watch
[2021-04-16 04:10] VITALS: BP 116/68
[2021-04-16 06:17] LABS: MEAN CORPUSCULAR HEMOGLOBIN 30.6 uug (23.8-33.4); MEAN CORPUSCULAR VOLUME 90.8 fL (73.0-96.2); PLATELET COUNT (AUTO) 352 K/uL (152-348)
[2021-04-16 06:39] LABS: BILIRUBIN,TOTAL 1.8 mg/dL (0.2-1.0); CREATININE 0.7 mg/dL (0.6-1.3); MAGNESIUM 2.6 mg/dL (1.8-2.4); PHOSPHOROUS 3.4 mg/dL (2.5-4.9); POTASSIUM 3.6 mmol/L (3.5-5.1); TOTAL PROTEIN, SERUM 7.4 g/dL (6.4-8.2)
--- NOTE | 2021-04-16 07:30 | NUR ---
Patient received in bed with eyes closed, but easily arousable. On RA with no SOB or difficulties breathing. No acute distress noted. Right FA IV patent running IVF at 75mL/h with no redness or swelling. NPO at this time for possible PEG tub placement with Dr. Cain today. Call light within easy reach. Will continue to monitor.
[2021-04-16] MEDS: RIVASTIGMINE TARTRATE 1.5 MG CAPSULE PO SCH ×2 (08:07→20:51)
[2021-04-16] MEDS: risperiDONE 1 MG TABLET PO SCH ×2 (08:07→20:51)
[2021-04-16] MEDS: DIVALPROEX SPRINKLE 125 MG CAP.SPRINK PO SCH ×2 (08:07→20:50)
[2021-04-16] MEDS: CARVEDILOL 3.125 MG TABLET PO SCH ×2 (08:28→17:47)
[2021-04-16] MEDS ORDERED: CARVEDILOL 3.125 MG TABLET PO SCH (09:00)
[2021-04-16 11:00] VITALS: BP 146/119
[2021-04-16] MEDS: IV D5 1/2 NS 1000 ML 1,000 ML IV PRN (13:56)
[2021-04-16 15:06] VITALS: BP 116/57
[2021-04-16] MEDS: ACETAMINOPHEN 325 MG TABLET PO PRN (17:47)
--- NOTE | 2021-04-16 18:00 | NUR ---
As per [facility] provider eleanor Presley to use NG tube. Started Jevity feeding and will monitor to see if patient tolerates.
[2021-04-16] MEDS: JEVITY 1.2 1000 ML LIQUID GT PRN (18:07)
[2021-04-16 20:03] VITALS: BP 115/69
[2021-04-16] MEDS: MIRTAZAPINE 15 MG TABLET PO SCH (20:50)
[2021-04-16] MEDS: DOCUSATE SODIUM 100 MG CAPSULE PO SCH (20:51)
[2021-04-16] MEDS: IPRATROPIUM BROMIDE 0.5 MG/2.5 ML NEBU NEB PRN (22:23)
[2021-04-16] MEDS: ALBUTEROL SULFATE 1.25 MG/3 ML NEBU NEB PRN (22:24)
[2021-04-17] MEDS: ACETAMINOPHEN 325 MG TABLET PO PRN ×2 (00:16→15:58)
[2021-04-17 04:18] VITALS: BP 119/71
--- NOTE | 2021-04-17 05:26 | NUR ---
Pt arousable to stimuli. Slept all night. NG tube in place running jevity, no residual. Pt noted to sound congested. RT called and pt was deep suctioned and breathing treatment was done, tolerated well. Pt had fever, cooling measures initiated and Tylenol given, tolerated well. No other issues or concerns at this time, will endorse to day shift.
[2021-04-17] MEDS: IV D5 1/2 NS 1000 ML 1,000 ML IV PRN ×2 (06:22→19:40)
--- NOTE | 2021-04-17 07:30 | NUR ---
Patient received in bed with eyes closed, but easily arousable with touch. On RA with no SOB or difficulties breathing. No acute distress noted. Right FA IV patent running IVF at 75mL/h with no redness or swelling. NG tube in place running Jevity as ordered with no residual. Call light within easy reach. Will continue to monitor.
[2021-04-17 07:57] LABS: HEMATOCRIT 40.2 % (36.7-47.1); MEAN CORPUSCULAR HEMOGLOBIN 30.8 uug (23.8-33.4); PLATELET COUNT (AUTO) 362 K/uL (152-348)
[2021-04-17] MEDS: DIVALPROEX SPRINKLE 125 MG CAP.SPRINK PO SCH ×2 (08:04→20:20)
[2021-04-17] MEDS: risperiDONE 1 MG TABLET PO SCH ×2 (08:04→20:20)
[2021-04-17] MEDS: RIVASTIGMINE TARTRATE 1.5 MG CAPSULE PO SCH ×2 (08:04→20:20)
[2021-04-17] MEDS: CARVEDILOL 3.125 MG TABLET PO SCH ×2 (08:05→16:00)
[2021-04-17 08:10] LABS: CREATININE 0.8 mg/dL (0.6-1.3); POTASSIUM 3.9 mmol/L (3.5-5.1)
[2021-04-17 10:30] LABS: *BILIRUBIN,URIN 3+ (NEGATIVE); *BLOOD, URINE TRACE (NEGATIVE); *CLARITY,URINE CLEAR (CLEAR); *COLOR,URINE DARK YELLOW (YELLOW); *KETONES,URINE NEGATIVE (NEGATIVE); *UROBILINOGEN,URINE >=8.0 E.U./dl (NORMAL); LEUKOCYTE ESTERASE ,URINE NEGATIVE (NEGATIVE); NITRITE, URINE NEGATIVE (NEGATIVE); UGLUCOSE TRACE (NEGATIVE)
[2021-04-17 10:57] VITALS: BP 147/71
[2021-04-17 13:30] LABS: BACTERIA,URINE MODERATE /HPF (NONE SEEN); SQUAMOUS EPITHELIAL CELL,UR FEW /HPF (NONE SEEN)
[2021-04-17 13:31] LABS: MUCUS,URINE FEW /LPF (0-FEW)
[2021-04-17 15:06] VITALS: BP 127/66
--- NOTE | 2021-04-17 15:06 | NUR ---
at bedside. Consent obtained for PEG tube placement tomorrow with Dr. Cain. Patient's expressed understanding.
[2021-04-17] MEDS: MIRTAZAPINE 15 MG TABLET PO SCH (20:20)
[2021-04-17] MEDS: DOCUSATE SODIUM 100 MG CAPSULE PO SCH (20:20)
[2021-04-17 20:37] VITALS: BP 98/47
[2021-04-17] MEDS: JEVITY 1.2 1000 ML LIQUID GT PRN (21:37)
[2021-04-18 04:05] VITALS: BP 111/71
--- NOTE | 2021-04-18 06:19 | NUR ---
Patient asleep in bed. On room air. No signs of acute distress. NG tube in place running Jevity 1.2 at 50cc/hr. Patient on NPO post midnight, for PEG tube placement in the am with Dr. Cain. IV access running D5 1/2 NS at 80cc/hr. Patient kept clean and comfortable. Bed alarm on. Frequent patient rounding for safety. Will endorse to incoming shift for continuity of care.
[2021-04-18 07:02] LABS: HEMATOCRIT 39.9 % (36.7-47.1); MEAN CORPUSCULAR HEMOGLOBIN 31.3 uug (23.8-33.4); MEAN CORPUSCULAR VOLUME 89.6 fL (73.0-96.2); PLATELET COUNT (AUTO) 359 K/uL (152-348)
[2021-04-18 07:12] LABS: CREATININE 0.7 mg/dL (0.6-1.3); POTASSIUM 3.7 mmol/L (3.5-5.1)
[2021-04-18] MEDS: risperiDONE 1 MG TABLET PO SCH ×2 (08:35→20:00)
[2021-04-18] MEDS: DIVALPROEX SPRINKLE 125 MG CAP.SPRINK PO SCH ×2 (08:35→20:00)
[2021-04-18] MEDS: CARVEDILOL 3.125 MG TABLET PO SCH ×2 (08:35→16:08)
[2021-04-18] MEDS: RIVASTIGMINE TARTRATE 1.5 MG CAPSULE PO SCH ×2 (08:35→20:00)
[2021-04-18] MEDS: IV D5 1/2 NS 1000 ML 1,000 ML IV PRN ×2 (09:28→21:31)
[2021-04-18] MEDS ORDERED: FENTANYL CITRATE 100 MCG/2 ML AMPUL ONE (09:33)
--- NOTE | 2021-04-18 09:42 | NUR ---
pt went to or via bed for the procedure in stable condition
--- NOTE | 2021-04-18 11:00 | NUR ---
pt received from recovery room .vs are stable call light with in reach ,family at bed side
[2021-04-18 12:00] VITALS: BP 103/70
[2021-04-18] MEDS: ACETAMINOPHEN 325 MG TABLET PO PRN (16:07)
[2021-04-18 16:31] VITALS: BP 112/62
[2021-04-18] MEDS: DOCUSATE SODIUM 100 MG CAPSULE PO SCH (20:00)
[2021-04-18] MEDS: MIRTAZAPINE 15 MG TABLET PO SCH (20:00)
[2021-04-18 20:37] VITALS: BP 111/69
[2021-04-19 04:45] VITALS: BP 106/71
[2021-04-19] MEDS ORDERED: TEMAZEPAM 7.5 MG CAPSULE GT PRN (10:05)
[2021-04-19] MEDS ORDERED: MAGNESIUM HYDROXIDE 30 ML LIQUID UDC GT PRN (10:05)
[2021-04-19] MEDS ORDERED: hydrALAZINE HCL 25 MG TABLET GT PRN (10:05)
[2021-04-19] MEDS ORDERED: MIRTAZAPINE 15 MG TABLET GT SCH (10:06)
[2021-04-19] MEDS ORDERED: LORAZEPAM 1 MG TABLET GT PRN (10:06)
[2021-04-19] MEDS ORDERED: MAG HYDROX/AL HYDROX/SIMETH 30 ML LIQUID UDC GT PRN (10:08)
[2021-04-19] MEDS: risperiDONE 1 MG TABLET GT SCH ×2 (10:23→20:16)
[2021-04-19] MEDS: CARVEDILOL 3.125 MG TABLET GT SCH ×2 (10:23→20:17)
[2021-04-19] MEDS: VALPROIC ACID 250 MG/5 ML LIQUID UDC GT SCH ×2 (10:23→20:16)
[2021-04-19] MEDS: RIVASTIGMINE TARTRATE 1.5 MG CAPSULE GT SCH ×2 (10:23→20:16)
[2021-04-19 11:26] VITALS: BP 121/71
[2021-04-19 12:19] LABS: HEMATOCRIT 36.5 % (36.7-47.1); MEAN CORPUSCULAR HEMOGLOBIN 30.6 uug (23.8-33.4); MEAN CORPUSCULAR VOLUME 89.3 fL (73.0-96.2); PLATELET COUNT (AUTO) 402 K/uL (152-348)
[2021-04-19 12:24] LABS: CREATININE 0.7 mg/dL (0.6-1.3); POTASSIUM 3.7 mmol/L (3.5-5.1)
[2021-04-19] MEDS ORDERED: PROPOFOL 200 MG/20 ML BOTTLE IV ONE (13:18)
[2021-04-19] MEDS ORDERED: CEFAZOLIN 1 G VIAL MC ONE (13:18)
[2021-04-19 15:31] VITALS: BP 116/72
--- NOTE | 2021-04-19 18:45 | NUR ---
Resumed patient on GT feeding @ 35cc. Tolerated well. Increased to 50cc. Tolerating well. Abdominal binder in place. R forearm 20g intact and flushed. Safety measures in place. Will endorse to night time babysitter n
[2021-04-19] MEDS: IV D5 1/2 NS 1000 ML 1,000 ML IV PRN (19:43)
[2021-04-19 20:00] VITALS: BP 125/68
[2021-04-19] MEDS: DOCUSATE SODIUM 100 MG/10 ML LIQUID UDC GT SCH (20:14)
[2021-04-19] MEDS: MIRTAZAPINE 15 MG TABLET GT SCH (20:16)
[2021-04-19] MEDS ORDERED: CARVEDILOL 3.125 MG TABLET GT SCH (21:00)
--- NOTE | 2021-04-19 21:30 | NUR ---
Received pt in bed. Confused. No acute distress noted. Adams David 0. G-tube site, patent and intact. Feeding at 50 cc/ hr, tolerating well. IV site, patent and intact. Mittens removed one at a time, with good circulation. Safety measures maintained. Will continue to monitor.
[2021-04-20 04:00] VITALS: BP 115/80
[2021-04-20 06:14] LABS: HEMATOCRIT 38.5 % (36.7-47.1); MEAN CORPUSCULAR HEMOGLOBIN 30.6 uug (23.8-33.4); MEAN CORPUSCULAR VOLUME 89.6 fL (73.0-96.2); PLATELET COUNT (AUTO) 409 K/uL (152-348)
[2021-04-20 06:28] LABS: CREATININE 0.8 mg/dL (0.6-1.3); POTASSIUM 3.6 mmol/L (3.5-5.1)
[2021-04-20] MEDS: CALCIUM CARBONATE 500 MG TABLET PO SCH (09:28)
[2021-04-20] MEDS: RIVASTIGMINE TARTRATE 1.5 MG CAPSULE GT SCH ×2 (09:28→20:15)
[2021-04-20] MEDS: VALPROIC ACID 250 MG/5 ML LIQUID UDC GT SCH ×2 (09:29→20:14)
[2021-04-20] MEDS: risperiDONE 1 MG TABLET GT SCH ×2 (09:29→20:15)
[2021-04-20] MEDS: CARVEDILOL 3.125 MG TABLET GT SCH ×2 (09:31→20:33)
[2021-04-20] MEDS: IV D5 1/2 NS 1000 ML 1,000 ML IV PRN (09:32)
[2021-04-20 11:40] VITALS: BP 103/60
[2021-04-20] MEDS ORDERED: LACT-209 GT (14:03)
[2021-04-20] MEDS ORDERED: APIX5TAB4 GT (14:03)
[2021-04-20] MEDS ORDERED: DOCU250C14 GT (14:03)
[2021-04-20] MEDS ORDERED: HYDR-894 GT (14:03)
[2021-04-20] MEDS ORDERED: MAG355OR18 GT (14:03)
[2021-04-20] MEDS ORDERED: RIVA1.5C13 GT (14:03)
[2021-04-20] MEDS ORDERED: ACET-2154 GT (14:03)
[2021-04-20] MEDS ORDERED: RISP1TAB97 GT (14:03)
[2021-04-20] MEDS ORDERED: MIRT-94 GT (14:03)
[2021-04-20] MEDS ORDERED: CALC500T53 GT (14:03)
[2021-04-20] MEDS ORDERED: MAGN400O6 GT (14:03)
[2021-04-20] MEDS ORDERED: CARV3.122 GT (14:03)
[2021-04-20 16:00] VITALS: BP 102/75
[2021-04-20] MEDS: JEVITY 1.2 1000 ML LIQUID GT PRN (17:57)
[2021-04-20] MEDS: DOCUSATE SODIUM 100 MG/10 ML LIQUID UDC GT SCH (20:14)
[2021-04-20] MEDS: MIRTAZAPINE 15 MG TABLET GT SCH (20:15)
[2021-04-20 21:21] VITALS: BP 97/66
--- NOTE | 2021-04-21 00:51 | NUR ---
Awake alert but confused. Bilateral mittens intact. Fall precautions maintained. Incontinenet of bowel and bladder. Kept clean and dry Needs attended. On Jevity feedings @ 50cc/hr continous. Tolerated well. HOB up at all times. IVF's infusing well @ 80cc/hr via left arm heplock. Repositioned for comfort. Will monitor patient. Siderails up for safety.VSS.
[2021-04-21 04:00] VITALS: BP 154/91
[2021-04-21] MEDS: RIVASTIGMINE TARTRATE 1.5 MG CAPSULE GT SCH ×2 (09:23→20:25)
[2021-04-21] MEDS: VALPROIC ACID 250 MG/5 ML LIQUID UDC GT SCH ×2 (09:23→20:25)
[2021-04-21] MEDS: risperiDONE 1 MG TABLET GT SCH ×2 (09:24→20:25)
[2021-04-21] MEDS: CALCIUM CARBONATE 500 MG TABLET PO SCH (09:24)
[2021-04-21] MEDS: CARVEDILOL 3.125 MG TABLET GT SCH ×2 (09:30→20:25)
[2021-04-21 11:43] VITALS: BP 120/68
[2021-04-21 15:24] VITALS: BP 138/78
[2021-04-21 19:50] VITALS: BP 109/51
[2021-04-21] MEDS: ACETAMINOPHEN 650 MG/20.3 ML LIQUID UDC GT PRN (20:25)
[2021-04-21] MEDS: DOCUSATE SODIUM 100 MG/10 ML LIQUID UDC GT SCH (20:25)
[2021-04-21] MEDS: MIRTAZAPINE 15 MG TABLET GT SCH (20:25)
[2021-04-21] MEDS: IV D5 1/2 NS 1000 ML 1,000 ML IV PRN (20:28)
[2021-04-21] MEDS: IPRATROPIUM BROMIDE 0.5 MG/2.5 ML NEBU NEB PRN (23:35)
[2021-04-21] MEDS: ALBUTEROL SULFATE 1.25 MG/3 ML NEBU NEB PRN (23:35)
[2021-04-22] MEDS: JEVITY 1.2 1000 ML LIQUID GT PRN (00:02)
[2021-04-22 04:10] VITALS: BP 117/78
--- NOTE | 2021-04-22 05:43 | NUR ---
Pt slept all night. No distress noted. Pt noted to sound congested, breathing treatment and deep suction done, pt tolerated well. IV site intact. GT in place running IBillionaire 1.2, no residual. Bilateral mittens on, released every 2 hours for circulatory check. No other issues or concerns at this time, will endorse to day shift.
[2021-04-22] MEDS: RIVASTIGMINE TARTRATE 1.5 MG CAPSULE GT SCH (09:05)
[2021-04-22] MEDS: risperiDONE 1 MG TABLET GT SCH (09:05)
[2021-04-22] MEDS: VALPROIC ACID 250 MG/5 ML LIQUID UDC GT SCH (09:06)
[2021-04-22] MEDS: CARVEDILOL 3.125 MG TABLET GT SCH (09:06)
[2021-04-22] MEDS ORDERED: CALCIUM CARBONATE 500 MG TABLET GT SCH (09:30)
[2021-04-22] MEDS: ACETAMINOPHEN 650 MG/20.3 ML LIQUID UDC GT PRN (10:37)
[2021-04-22 11:33] VITALS: BP 110/62
--- NOTE | 2021-04-22 12:37 | NUR ---
report given to ana maria from the facility
--- NOTE | 2021-04-22 13:24 | NUR ---
PATIENT DISCHARGED TO [facility], STABLE CONDITION, IV REMOVED, G-TUBE INTACT, FAMILY IS AWARE ABOUT TRANSFER, NO DISTRESS NOTED. PATIENT SHOES FOUND IN THE ROOM AFTER DISCHARGE, PLACED IN CONTRABAND, CALLED FAMILY TO PICK IT UP.
== END 2021-04-22 13:00 | DRG 641 ==
LOC: MEDSURG3 17:32
PROVIDERS: ADMIT Nurse Practitioner Acute Care; ATTEND Hospitalist
PROC: 0DH63UZ Insertion of Feeding Device into Stomach, Percutaneous Approach (ICD-10-PCS; principal; 2021-04-18)
DX: R62.7 Adult failure to thrive (principal); J98.11 Atelectasis; G93.49 Other encephalopathy; G30.9 Alzheimer's disease, unspecified; F02.80 Dementia in other diseases classified elsewhere, unspecified severity, without behavioral disturbance, psychotic disturbance, mood disturbance, and anxiety; I48.91 Unspecified atrial fibrillation; K29.70 Gastritis, unspecified, without bleeding; I10 Essential (primary) hypertension; Z79.01 Long term (current) use of anticoagulants; R13.10 Dysphagia, unspecified; R53.1 Weakness; R74.01 Elevation of levels of liver transaminase levels; F29 Unspecified psychosis not due to a substance or known physiological condition; F32.A Depression, unspecified; Z68.27 Body mass index [BMI] 27.0-27.9, adult; Z20.822 Contact with and (suspected) exposure to COVID-19; E86.9 Volume depletion, unspecified
CPT/HCPCS: 36415; 71045; 83735; 84100; 85025; 85730; 87086; 94640; A4217; G0378; J0690; J3010; J3490; J3590; J7030